=== PATIENT | female | born 1995 | race Caucasian/White ===

== ENCOUNTER 2016-09-03 12:49 | Outpatient (CLI) | payer BC, MEDICAID ==
[~2016-09-03] VITALS: Ht 160 cm; Wt 73.9 kg
[2016-09-03 13:09] VITALS: BP 123/56; PULSE 80; RESP 20; Ht 160 cm; Wt 73.9 kg
[2016-09-03] MEDS ORDERED: PRENAT PO (13:12)
[2016-09-03] MEDS ORDERED: FERR325C PO (13:12)
[2016-09-03] MEDS ORDERED: CALC-516 PO (13:13)
[2016-09-03] MEDS ORDERED: LACTATED RINGER'S 1,000 ML IV ONE (14:00)
--- NOTE | 2016-09-03 14:42 | RADRPT ---
PROCEDURE: OB ultrasound for biophysical profile CLINICAL INDICATION: Contractions TECHNIQUE: Multiple sonographic images of the pelvis were obtained. Transabdominal views of the g ravid uterus are available for review. The images were reviewed on a PACS workstation. COMPARISON: None FINDINGS: breathing movement = 2/2 tone = 2/2 motion = 2/2 BUZZ = 2/2 BUZZ = 16.0 cm Single live intrauterine with cardiac activity of 138 bpm. position is cephal ic. The placenta is fundal. The cervix is closed with a length of 3.2 cm. IMPRESSION: 1. Single live intrauterine gestation. 2. Biophysical profile = 8/8. 3. BUZZ = 16.0 cm. RPTAT: HH .Prerna Coreas MD, Date Time Electronically viewed and signed by .Prerna Coreas MD, on 09/03/2016 14:41 .G/
[2016-09-03] MEDS ORDERED: TERBUTALINE 1 MG/ML INJ SC PRN (14:55)
[2016-09-03] MEDS ORDERED: LACTATED RINGER'S 1,000 ML IV SCH (15:00)
[2016-09-03 15:27] LABS: ADD UMIC NO; URINE BILIRUBIN (Dip) NEGATIVE (NEGATIVE); URINE BLOOD (Dip) NEGATIVE (NEGATIVE); URINE COLOR LT. YELLOW (YELLOW); URINE GLUCOSE (Dip) NEGATIVE (NEGATIVE); URINE KETONES (Dip) 15 (NEGATIVE); URINE LEUKOCYTE ESTERASE (Dip) NEGATIVE (NEGATIVE); URINE NITRITE (Dip) NEGATIVE (NEGATIVE); URINE TOTAL PROTEIN (Dip) NEGATIVE (NEGATIVE); URINE UROBILINOGEN (Dip) 0.2 E.U./dL (0.1-1.0)
--- NOTE | 2016-09-03 17:24 | HP ---
Date/Time of Note Date/Time of Note DATE: 09/03/16 TIME: 17:17 OB - History Hx of Present Free Text/Dictation OB Triage Pt is a 21yo G1 at 33+5 presenting with painful UCs which made her legs go numb. Pt reports normal FM, denies LOF or VB. ------ PROCEDURE: OB ultrasound for biophysical profile CLINICAL INDICATION: Contractions TECHNIQUE: Multiple sonographic images of the pelvis were obtained. Transabdominal views of the gravid uterus are available for review. The images were reviewed on a PACS workstation. COMPARISON: None FINDINGS: breathing movement = 2/2 tone = 2/2 motion = 2/2 BUZZ = 2/2 BUZZ = 16.0 cm Single live intrauterine with cardiac activity of 138 bpm. position is cephalic. The placenta is fundal. The cervix is closed with a length of 3.2 cm. IMPRESSION: 1. Single live intrauterine gestation. 2. Biophysical profile = 8/8. 3. BUZZ = 16.0 cm. Estimated Due Date: Oct 17, 2016 Care: Good Care Obstetrical Complications: None Medical Complications: None Past Family/Social History * Past Medical, Surgical, Family and Obstetric Histories reviewed from chart. OB Admission Exam Vital Signs Vital Signs Vital Signs Date Time Temp Pulse Resp B/P Pulse Ox O2 Delivery O2 Flow Rate FiO2 09/03/16 13:09 98.3 80 20 123/56 Room Air Physical Exam Heart Rate: 130's Accelerations: Accelerations Present Decelerations: No Decelerations Varibility: Moderate Contractions on Admission: < 5 Minutes Apart (acontractile on toco s/p Terbutaline) OB Assessment/Plan Other Assessment: contractions without e/o labor Other plan: ->Given resolution of UCs with Terbutaline, CL >3cm and closed cervix on SVE, unlikely pt is in PTL ->FWB reassuring, reactive NST Pt appropriate for d/c home. FKC, PTL, PPROM precautions reviewed. Encouraged PO hydration. Pt to f/up as scheduled w/Dr. Terrell on 09/08/16. Questions answered to patient's satisfaction. PATRICIA MORTENSEN MD Sep 03, 2016 17:24
== END 2016-09-03 17:31 | disposition home or self-care (01) ==
LOC: OBT 12:49 → L-D 12:51 → OBT 17:31
PROVIDERS: ATTEND Obstetrics & Gynecology
DX: O62.9 Abnormality of forces of labor, unspecified (principal); Z3A.33 33 weeks gestation of pregnancy
CPT/HCPCS: 36415; 76817; 76818; 81003; 96360; 96361; 96372; J3105; J7120; Z7500; G0463

== ENCOUNTER 2016-10-12 21:59 | Inpatient (IN) | payer BC ==
[~2016-10-12] VITALS: Ht 160 cm; Wt 76.5 kg
[~2016-10-12 21:59] MED LIST: CALC-516 PO; FERR325C PO; PRENAT PO
[2016-10-12 22:35] VITALS: Ht 160 cm; Wt 76.5 kg
[2016-10-12 22:36] VITALS: BP 116/55; PULSE 63; RESP 18
--- NOTE | 2016-10-13 00:53 | HP ---
Date/Time of Note Date/Time of Note DATE: 10/13/16 TIME: 00:51 OB - History Hx of Present Chief Complaint: contractions Estimated Due Date: Oct 20, 2016 : 1 Para: 0 Spontaneous : 0 Therapeutic : 0 Care: Good Care Obstetrical Complications: None Medical Complications: None Past Family/Social History * Past Medical, Surgical, Family and Obstetric Histories reviewed from chart. OB Admission Exam Vital Signs Vital Signs Vital Signs Date Time Temp Pulse Resp B/P Pulse Ox O2 Delivery O2 Flow Rate FiO2 10/12/16 22:36 98.2 63 18 116/55 Room Air Physical Exam HEENT: WNL Heart: Rhythm Normal Lungs: Clear Abdomen: WNL Extremities: Normal Reflexes: Normal Cervical Dilatation: 1cm Effacement: 75% Station: -1 Membranes: Intact Heart Rate: 130's Accelerations: Accelerations Present Decelerations: No Decelerations Varibility: Moderate OB Assessment/Plan Reason for admission: active labor Plan: Expectant Management NATHANIEL RODRIGUEZ MD Oct 13, 2016 00:53
[2016-10-13] MEDS ORDERED: METHYLERGONOVINE 0.2 MG INJ IM PRN (01:00)
[2016-10-13] MEDS ORDERED: LACTATED RINGER'S 1,000 ML IV PRN (01:00)
[2016-10-13] MEDS ORDERED: ACETAMINOPHEN/CODEINE #3 TAB PO PRN ×2 (01:00→21:30)
[2016-10-13] MEDS ORDERED: MISOPROSTOL 200 MCG TAB PR PRN (01:00)
[2016-10-13] MEDS ORDERED: OXYTOCIN 30 UNITS/LR 500 ML IV PRN (01:00)
[2016-10-13] MEDS ORDERED: CARBOPROST 250 MCG INJ IM PRN (01:00)
[2016-10-13] MEDS ORDERED: BUTORPHANOL 2 MG INJ IV PRN ×2 (01:00)
[2016-10-13] MEDS ORDERED: OXYTOCIN 30 UNITS/LR 500 ML IV SCH ×3 (01:00→10:00)
[2016-10-13] MEDS ORDERED: IBUPROFEN 600 MG TAB PO PRN (01:00)
[2016-10-13] MEDS ORDERED: LIDOCAINE 1% (MPF) 30 ML INJ INJ PRN (01:00)
[2016-10-13] MEDS: LACTATED RINGER'S 1,000 ML IV SCH ×3 (01:30→12:09)
[2016-10-13 01:43] LABS: ADD SCAN DIFF NO
[2016-10-13 01:45] LABS: BASOPHIL # 0.1 10^3/ul (0.0-0.1); BASOPHILS % 0.4 % (0.0-2.0); EOSINOPHILS # 0.1 10^3/ul (0.0-0.5); EOSINOPHILS % 0.6 % (0.0-7.0); HEMATOCRIT 32.6 % (37.0-47.0); HEMOGLOBIN 11.7 g/dl (12.0-16.0); LYMPHOCYTES # 2.6 10^3/ul (0.8-2.9); LYMPHOCYTES % 20.3 % (15.0-51.0); MEAN CORPUSCULAR HEMOGLOBIN 34.4 pg (29.0-33.0); MEAN CORPUSCULAR HGB CONC 35.9 g/dl (32.0-37.0); MEAN CORPUSCULAR VOLUME 95.9 fl (82.0-101.0); MEAN PLATELET VOLUME 9.2 fl (7.4-10.4); MONOCYTE # 0.7 10^3/ul (0.3-0.9); MONOCYTES % 5.7 % (0.0-11.0); NEUTROPHIL # 8.8 10^3/ul (1.6-7.5); PLATELET COUNT 250 10^3/UL (140-415); RED CELL DISTRIBUTION WIDTH 12.2 % (11.5-14.5); WHITE BLOOD COUNT 12.6 10^3/ul (4.8-10.8)
[2016-10-13 01:55] LABS: INR 0.9; PROTIME 12.1 Sec (12.2-14.2); PT RATIO 0.9
[2016-10-13 01:56] LABS: PARTIAL THROMBOPLASTIN TIME 25.2 Sec (25.0-35.0)
[2016-10-13] MEDS ORDERED: FENTAnyl 2MCG/ML-ROPIV 0.2% 100 ML ONE (11:39)
[2016-10-13] MEDS ORDERED: FENTAnyl 2MCG/ML-ROPIV 0.2% 100 ML BAG EPI SCH (13:00)
[2016-10-13] MEDS ORDERED: NALOXONE (0.4 MG/ML) INJ IV PRN (13:00)
[2016-10-13] MEDS ORDERED: DIPHENHYDRAMINE 50 MG INJ IV PRN (13:00)
[2016-10-13] MEDS ORDERED: HYDROmorphONE 1 MG/ML SYG IV PRN ×2 (13:00)
[2016-10-13] MEDS ORDERED: ZOLPIDEM 5 MG TAB PO PRN (13:00)
[2016-10-13] MEDS ORDERED: ONDANSETRON 4 MG INJ IV PRN ×2 (13:00→21:30)
--- NOTE | 2016-10-13 18:19 | LDN ---
Date/Time of Note Date/Time of Note DATE: 10/13/16 TIME: 18:15 Delivery Summary Normal spontaneous vaginal delivery of a baby girl from NELL position shoulders delivered without any difficulty rest of the baby's body follow cord clamped after stopped pulsation placenta spontaneous expulsion inspected complete blood loss 250 cc patient sustained small first-degree laceration repaired with 3-0 chromic catgut Placenta Delivered: Spontaneously Meconium: none Episiotomy: No Perineal laceration: 1 Laceration repair: First-degree perineal laceration repaired with single 3-0 chromic catgut Anesthesia type: Epidural Estimated blood loss: 250 Sponge & Needle done & correct: Yes All needle counts correct: Yes Any foreign bodies felt in the: No Problems: Infant Delivery Information Sex Infant Sex: female Apgars 1 Minute: 9 5 Minute: 9 Umbilical Cord Cord presentations: no nuchal cord Cord Blood was obtained: Yes SALVADOR OHARA MD Oct 13, 2016 18:19
[2016-10-13 20:45] VITALS: BP 130/62; PULSE 58; RESP 18
[2016-10-13 21:15] VITALS: BP 127/64; PULSE 72; RESP 18
[2016-10-13] MEDS ORDERED: ACETAMINOPHEN 325 MG TAB PO PRN (21:30)
[2016-10-13] MEDS ORDERED: WITCH HAZEL/GLYCERIN PAD PR PRN (21:30)
[2016-10-13] MEDS ORDERED: BENZOCAINE 20% 56 ML SPRAY TOP PRN (21:30)
[2016-10-13] MEDS ORDERED: DIBUCAINE 1% 30 GM OINT PR PRN (21:30)
[2016-10-13] MEDS ORDERED: OXYCODONE/ASPIRIN (4.88/325) TAB PO PRN ×2 (21:30)
[2016-10-13] MEDS ORDERED: LANOLIN 7 GM TUBE TOP PRN (21:30)
[2016-10-13] MEDS: SENNA/DOCUSATE NA (8.6MG/50MG) TAB PO SCH (21:38)
[2016-10-13] MEDS: OXYTOCIN 30 UNITS/LR 500 ML IV SCH (22:21)
[2016-10-13] MEDS: IBUPROFEN 600 MG TAB PO SCH (23:48)
[2016-10-14 00:30] VITALS: BP 117/58; PULSE 71
[2016-10-14] MEDS: ACETAMINOPHEN/CODEINE #3 TAB PO PRN (01:09)
[2016-10-14] MEDS: OXYTOCIN 30 UNITS/LR 500 ML IV SCH (01:13)
[2016-10-14 04:30] VITALS: BP 117/56; PULSE 80; RESP 18
[2016-10-14] MEDS: IBUPROFEN 600 MG TAB PO SCH ×3 (06:07→17:45)
[2016-10-14 07:45] VITALS: BP 120/58; PULSE 95; RESP 20
[2016-10-14 08:06] LABS: ADD SCAN DIFF NO
[2016-10-14 08:08] LABS: BASOPHILS % 0.2 % (0.0-2.0); EOSINOPHILS % 0.2 % (0.0-7.0); HEMATOCRIT 25.6 % (37.0-47.0); HEMOGLOBIN 9.2 g/dl (12.0-16.0); LYMPHOCYTES # 2.1 10^3/ul (0.8-2.9); LYMPHOCYTES % 15.6 % (15.0-51.0); MEAN CORPUSCULAR HEMOGLOBIN 34.7 pg (29.0-33.0); MEAN CORPUSCULAR HGB CONC 35.9 g/dl (32.0-37.0); MEAN CORPUSCULAR VOLUME 96.6 fl (82.0-101.0); MONOCYTE # 0.9 10^3/ul (0.3-0.9); MONOCYTES % 6.6 % (0.0-11.0); NEUTROPHIL # 10.4 10^3/ul (1.6-7.5); PLATELET COUNT 196 10^3/UL (140-415); RED BLOOD COUNT 2.65 10^6/ul (4.20-5.40); RED CELL DISTRIBUTION WIDTH 12.2 % (11.5-14.5); WHITE BLOOD COUNT 13.6 10^3/ul (4.8-10.8)
[2016-10-14] MEDS: SENNA/DOCUSATE NA (8.6MG/50MG) TAB PO SCH ×2 (09:27→20:45)
[2016-10-14 11:50] VITALS: BP 115/55; PULSE 67; RESP 19
[2016-10-14] MEDS ORDERED: INFLUENZA VIRUS VACCINE 0.5 ML (DISPENSING) IM* ONE (15:00)
[2016-10-14 16:00] VITALS: BP 100/60; PULSE 77; RESP 18
--- NOTE | 2016-10-14 16:02 | PN ---
Date/Time of Note Date/Time of Note DATE: 10/14/16 TIME: 15:58 OB Subjective Subjective Subjective October 14, 2016 Hospital visit Post day 1 Patient is doing well, Ambulatory She is afebrile Abdomen is soft , Fundus is firm Moderate amount of lochia Breasts are soft, Nipples are intact No calf tenderness. Perineum is healing well. Breast feeding the new born. Patient is doing well ambulatory is also doing well Laboratory Tests Test 10/14/16 07:53 White Blood Count 13.610^3/ul Red Blood Count 2.6510^6/ul Hemoglobin 9.2g/dl Hematocrit 25.6% Mean Corpuscular Volume 96.6fl Mean Corpuscular Hemoglobin 34.7pg Mean Corpuscular Hemoglobin Concent 35.9g/dl Red Cell Distribution Width 12.2% Platelet Count 72951^3/UL Mean Platelet Volume 9.0fl Neutrophils % 76.0% Lymphocytes % 15.6% Monocytes % 6.6% Eosinophils % 0.2% Basophils % 0.2% Nucleated Red Blood Cells % 0.0/100WBC Neutrophils # 10.410^3/ul Lymphocytes # 2.110^3/ul Monocytes # 0.910^3/ul Eosinophils # 0.010^3/ul Basophils # 0.010^3/ul Nucleated Red Blood Cells # 0.010^3/ul Current Medications Medications (Trade) Dose Ordered Sig/Omer Route PRN Reason Start Time Stop Time Status Last Admin Dose Admin Lactated Ringer's (Lr) 1,000 ml @ 125 mls/hr Q8H IV 10/13/16 00:55 10/13/16 21:16 DC 10/13/16 12:09 Butorphanol Tartrate (Stadol) 1 mg Q2H PRN IV PAIN 10/13/16 01:00 10/13/16 21:17 DC Butorphanol Tartrate (Stadol) 2 mg Q2H PRN IV PAIN 10/13/16 01:00 10/13/16 21:17 DC 10/13/16 02:30 Lidocaine 30 ml 30 ml ONCE PRN INJ EPISIOTOMY/TEARING 10/13/16 01:00 10/13/16 21:17 DC Oxytocin/Lactated Ringer's 500 ml @ 125 mls/hr ONCE -MAY REPEAT X1 IV 10/13/16 01:00 10/13/16 21:17 DC Oxytocin/Lactated Ringer's 500 ml @ 125 mls/hr ONCE IV 10/13/16 01:00 10/13/16 21:17 DC 10/13/16 18:24 Ibuprofen (Motrin) 600 mg ONCE PRN PO Mild Pain (Pain Score 1-3) 10/13/16 01:00 10/13/16 21:17 DC Acetaminophen/ Codeine Phosphate 2 tab 2 tab ONCE PRN PO Moderate to Severe Pain (4-10) 10/13/16 01:00 10/13/16 21:17 DC Lactated Ringer's 1,000 ml @ 2,000 mls/hr Q30M PRN IV PRE-EPIDURAL BOLUS 10/13/16 01:00 10/13/16 21:17 DC 10/13/16 10:21 Oxytocin/Lactated Ringer's 500 ml @ 0 mls/hr ONCE PRN IV For Hemorrhage Management 10/13/16 01:00 10/13/16 21:17 DC 10/13/16 12:00 Methylergonovine Maleate (Methergine) 0.2 mg ONCE PRN IM VAGINAL BLEEDING 10/13/16 01:00 10/13/16 21:17 DC Carboprost Tromethamine (Hemabate) 250 mcg ONCE PRN IM VAGINAL BLEEDING 10/13/16 01:00 10/13/16 21:17 DC Misoprostol 1000 mcg 1,000 mcg ONCE PRN IN VAGINAL BLEEDING 10/13/16 01:00 10/13/16 21:17 DC Oxytocin/Lactated Ringer's 500 ml @ 0 mls/hr Q0M IV 10/13/16 10:00 10/13/16 21:17 DC Fentanyl/ Ropivacaine 100 ml @ ud STK-MED ONCE .ROUTE 10/13/16 11:39 10/13/16 11:40 DC Naloxone HCl (Narcan) 0.1 mg Q2M PRN IV FOR RESP RATE 8 OR LESS 10/13/16 13:00 10/13/16 21:17 DC Hydromorphone HCl (Dilaudid) 0.2 mg Q3H PRN IV PAIN LEVEL 1-5 10/13/16 13:00 10/13/16 21:17 DC Hydromorphone HCl (Dilaudid) 0.4 mg Q3H PRN IV PAIN LEVEL 6-10 10/13/16 13:00 10/13/16 21:17 DC Diphenhydramine HCl (Benadryl) 25 mg Q6H PRN IV ITCHING 10/13/16 13:00 10/13/16 21:17 DC Ondansetron HCl (Zofran Inj) 4 mg Q6H PRN IV NAUSEA AND/OR VOMITING 10/13/16 13:00 10/13/16 21:17 DC 10/13/16 18:31 Zolpidem Tartrate (Ambien) 5 mg HS MAY REPEAT X 1 PRN PO INSOMNIA 10/13/16 13:00 10/13/16 21:17 DC Fentanyl/ Ropivacaine 100 ml 100 ml EPIDURAL INFUSION EPI 10/13/16 13:00 10/13/16 21:17 DC Oxytocin/Lactated Ringer's 500 ml @ 125 mls/hr Q4H IV 10/13/16 21:13 10/14/16 05:12 DC 10/13/16 22:21 Ibuprofen (Motrin) 600 mg Q6 PO 10/14/16 00:00 10/14/16 11:47 Acetaminophen (Tylenol Tab) 650 mg Q4H PRN PO PAIN LEVEL 1-5 10/13/16 21:30 Acetaminophen/ Codeine Phosphate (Tylenol No.3) 1 tab Q4H PRN PO PAIN LEVEL 1-5 10/13/16 21:30 Acetaminophen/ Codeine Phosphate (Tylenol No.3) 2 tab Q4H PRN PO PAIN LEVEL 6-10 10/13/16 21:30 10/14/16 01:09 Oxycodone/Aspirin (Percodan) 1 tab Q3H PRN PO PAIN LEVEL 1-5 10/13/16 21:30 Oxycodone/Aspirin (Percodan) 2 tab Q3H PRN PO PAIN LEVEL 6-10 10/13/16 21:30 Ondansetron HCl (Zofran Inj) 4 mg Q6H PRN IV NAUSEA AND/OR VOMITING 10/13/16 21:30 Senna/Docusate Sodium (Senokot-S) 1 tab BID PO 10/13/16 21:30 10/14/16 09:27 Witch Cassi/ Glycerin (Tucks Pads) 1 pad BEDSIDE MEDICATION PRN IN HEMORRHOID/EPISIOTMY PAIN 10/13/16 21:30 10/13/16 21:39 Benzocaine (Dermoplast [place]) 1 spray BEDSIDE MEDICATION PRN TOP HEMORRHOID/EPISIOTMY PAIN 10/13/16 21:30 10/13/16 21:38 Dibucaine (Nupercainal) 1 applic BEDSIDE MEDICATION PRN IN HEMORRHOID/EPISIOTMY PAIN 10/13/16 21:30 10/13/16 21:39 Lanolin (Iem-M-Ymaier) 1 applic BEDSIDE MEDICATION PRN TOP BEDSIDE FOR HUGO TO NIPPLES 10/13/16 21:30 10/13/16 21:38 Measles/Mumps/ Rubella Vaccine Live (Mmr Ii Vaccine) 0.5 ml ONCE ONCE SC* 10/15/16 09:00 10/15/16 09:01 Influenza Virus Vaccine (Fluzone) 0.5 ml ONCE ONCE IM* 10/16/16 09:00 10/16/16 09:00 DC Influenza Virus Vaccine (Fluzone) 0.5 ml ONCE ONCE IM* 10/14/16 15:00 10/14/16 15:01 JORGE OTTO MD Oct 14, 2016 16:02
[2016-10-15] MEDS: ACETAMINOPHEN/CODEINE #3 TAB PO PRN (02:20)
[2016-10-15 04:05] VITALS: BP 107/51; PULSE 72; RESP 18
[2016-10-15] MEDS: IBUPROFEN 600 MG TAB PO SCH ×2 (06:01)
[2016-10-15] MEDS: SENNA/DOCUSATE NA (8.6MG/50MG) TAB PO SCH (09:00)
[2016-10-15] MEDS ORDERED: MEASLES,MUMPS,RUBELLA VACCINE INJ SC* ONE (09:00)
--- NOTE | 2016-10-15 09:48 | PD.PPDC ---
FISHER MUSSEL Discharge Instruction Provider Information Physician Information Day 2 post normal vaginal delivery patient is discharged home with follow-up instructions examination before discharge abdomen soft uterus firm lochia normal extremity normal patient advised to make appointment to be seen at the clinic in 2 weeks Diagnosis Final Diagnosis: Post normal vaginal delivery Condition Patient Condition: Good Diet Diet: Resume Regular Diet Activity/Restrictions Activity: Normal Activity May Shower Restrictions: No Exercising No Lifting No Driving No Sexual Activity Nothing in the Vagina No [place] No Tampons, douche Follow-up Follow-up with Physician: 2, Week/Weeks Return to clinic for [facility]DER Instructions: Fever greater than 101 Chills Worsening abdominal pain Excessive Vaginal Bleeding More than 2 pads per hour Unable to tolerate diet OB Instructions: Breast Tenderness Blurried Vision SALVADOR OHARA MD Oct 15, 2016 09:48
--- NOTE | 2016-10-15 09:51 | DS ---
Date/Time of Note Date/Time of Note DATE: 10/15/16 TIME: 09:49 Discharge Summary Admission/Discharge Info Admit Date/Time Oct 13, 2016 at 01:15 Discharge Date/Time Final Diagnosis Post normal vaginal delivery patient discharged home with a follow-up instructions Patient Condition: Good Procedures Normal vaginal delivery Hx of Present Illness Term admitted to [facility] in active fo delivery Hospital Course Uneventful Home Meds Reported Medications Calcium Carbonate/Vitamin D3 (OYSTER SHELL CALCIUM TABLET) 1 Each Tablet, 1 EACH PO DAILY, TAB 09/03/16 Ferrous Sulfate (Iron) 325 Mg Capsule.er, 325 MG PO DAILY, CAP 09/03/16 Multivit/Min/Fol Ac/Iron/Pren* ( S*) 1 Tab Tab, 1 TAB PO DAILY, TAB 09/03/16 SALVADOR OHARA MD Oct 15, 2016 09:51
[2016-10-16] MEDS ORDERED: INFLUENZA VIRUS VACCINE 0.5 ML (DISPENSING) IM* ONE (09:00)
== END 2016-10-15 13:30 | disposition home or self-care (01) | DRG 775 ==
LOC: OBT 21:59 → L-D 22:00 → OBT 10-13 01:13 → L-D 10-13 01:15 → PP1 10-13 20:42
PROVIDERS: ADMIT Obstetrics & Gynecology; ATTEND Obstetrics & Gynecology
PROC: 10E0XZZ Delivery of Products of Conception, External Approach (ICD-10-PCS; principal; 2016-10-13)
PROC: 0HQ9XZZ Repair Perineum Skin, External Approach (ICD-10-PCS; 2016-10-13)
PROC: 3E0234Z Introduction of Serum, Toxoid and Vaccine into Muscle, Percutaneous Approach (ICD-10-PCS; 2016-10-14)
DX: O70.0 First degree perineal laceration during delivery (principal); Z3A.39 39 weeks gestation of pregnancy; Z23 Encounter for immunization; Z37.0 Single live birth
CPT/HCPCS: 62319; 85025; 85610; 85730; 86592; 86900; 86901; 87340; 90686; G0463; J2405; J2590; J3010; J7120